=== PATIENT | male | born 1990 | race Caucasian/White ===

== ENCOUNTER → 2019-11-15 | Outpatient (CLI) | payer OTHER | LOC: GMAM 12:22 | PROVIDERS: ATTEND Family Medicine | DX: R11.2 Nausea with vomiting, unspecified (principal) ==

== ENCOUNTER → 2019-11-20 | Outpatient (CLI) | payer OTHER ==
--- NOTE | 2019-11-20 17:53 | RAD ---
EXAM DESCRIPTION: Barium Swallow: Rad-Fluoroscopy. CLINICAL HISTORY: N/V COMPARISON: None TECHNIQUE: Fluoroscopy performed by Dr. Jeffery The patient swallowed barium pill with water. The patient swallowed gas-producing granules, water, and heavy density barium under fluoroscopic visualization. The images were obtained with the patient standing and horizontal. Patient drank medium density barium through a straw in the semi-prone position. 65 fluoroscopic cine loop images. 12 single static fluoroscopic images. Total fluoroscopy time was 3.0 minutes. DAP: 26.2 Gy-cm2.. FINDINGS: The patient swallowed the barium pill with water and no obstruction or delay of the pill transit from the oral cavity to the stomach. Minimal narrowing of the proximal esophagus in the AP axis just below the level of the glottis, but no definite mass or mucosal abnormality. Swallowing mechanism was grossly normal with no laryngeal penetration or aspiration. Primary peristaltic wave is unremarkable. When the gastroesophageal sphincter opens, it remains open, for a brief period, allowing gas from the stomach to enter the distal esophagus. No mucosal abnormality in the distal esophagus. No hiatal hernia. With the patient rolling in the horizontal position supine to prone, and stationary in the supine position, gastroesophageal reflux of barium is visualized to the level of the thoracic inlet. GE reflux was not elicited by Valsalva maneuver or coughing. No mucosal lesions or mass effect seen on the stomach or duodenum with no gastroduodenal obstruction. IMPRESSION: 1. Swallowing mechanism is unremarkable. 2. Minimal narrowing of the proximal esophagus in the AP axis but no definite mass effect or mucosal changes. 3. Marked gastroesophageal reflux with rolling in the horizontal position, not elicited by maneuvers increasing abdominal pressure. No hiatal hernia. Electronically signed by: Maurice Jeffery MD 11/20/2019 5:52 PM CDT
== END ==
LOC: RAD 08:08
PROVIDERS: ATTEND Family Medicine
DX: K22.9 Disease of esophagus, unspecified (principal); K21.9 Gastro-esophageal reflux disease without esophagitis; R11.2 Nausea with vomiting, unspecified

== ENCOUNTER → 2019-11-28 | Outpatient (CLI) | payer OTHER ==
--- NOTE | 2019-11-28 15:51 | US ---
EXAM DESCRIPTION: Gall Bladder: ULTRASOUND. CLINICAL HISTORY: NAUSEA WITH VOMITING COMPARISON: Fluoroscopic guided barium swallow November 19. TECHNIQUE: Transabdominal scanning: Mix-scale and Doppler modes. FINDINGS: Gallbladder: normal size, shape, echogenicity; no intraluminal stones or sludge. No fluid around the gallbladder. No wall thickening. 1.7 mm. Non-tender with transducer pressure. Common bile duct: caliber 4.0 mm within normal limits. Liver: Increased heterogeneous echogenicity; contour liver capsule smooth where seen. No fluid around the liver. Intrahepatic biliary ducts normal caliber. Doppler hepatopedal flow portal vein.. 9 mm. Long axis right lobe 16.9 cm. Pancreas: Not well visualized. Duct not seen. Aorta: 1.9 cm proximal normal caliber. Right kidney: long axis is 11.2 cm. Normal cortical thickness and echogenicity. No echogenic stones or hydronephrosis.. IMPRESSION: 1. Fatty liver and mildly enlarged. Normal vascularity and ducts. Otherwise negative. No ascites. Pancreas not well visualized. 2. Gallbladder and common bile duct are unremarkable. 3. Right kidney is negative. Normal caliber of the proximal abdominal aorta. Electronically signed by: Maurice Jeffery MD 11/28/2019 3:49 PM CDT
== END ==
LOC: US 08:23
PROVIDERS: ATTEND Family Medicine
DX: K76.0 Fatty (change of) liver, not elsewhere classified (principal); R11.2 Nausea with vomiting, unspecified